=== PATIENT | female | born 1965 | race Hispanic/Latino ===

== ENCOUNTER 2017-05-19 17:55 | Emergency (ER) | payer MEDICAID, OTHER ==
[2017-05-19 18:26] VITALS: BMI 28.3
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
[2017-05-19 20:52] VITALS: BP 144/99; PULSE 80; RESP 19; TEMP 98.2
[2017-05-19] MEDS ORDERED: Lidocaine 1% Inj (20ml) ONE (20:54)
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
[2017-05-19 21:29] VITALS: O2SAT 99
--- NOTE | 2017-05-20 07:39 | RAD ---
PROCEDURE: Radiographs of the Right Forearm HISTORY: fall, forearm pain COMPARISON: None available. TECHNIQUE: Frontal and lateral views obtained. FINDINGS: BONES: No fracture or destructive lesion. JOINT SPACES: Unremarkable. OTHER FINDINGS: None. IMPRESSION: Unremarkable radiographs of the right forearm.
--- NOTE | 2017-05-20 07:42 | RAD ---
PROCEDURE: Radiographs of the Lumbar Spine. HISTORY: back pain s/p fall COMPARISON: No prior. FINDINGS: BONES: A levoscoliotic lumbar spinal deformity is not excluded. The appears to be positional however. The anterior posterior lumbar curvature is normal nevertheless. No fracture or spondylolisthesis. Vertebral heights are normal throughout. No destructive bony lesions appreciated. DISC SPACES: Multilevel spondylosis appreciated mostly at the upper lumbar spine although moderate disc height loss present L4-5 also indicating degenerative disease but at the lower lumbar spine. OTHER FINDINGS: None. 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 Multilevel degenerative disease without fracture or spondylolisthesis.
== END 2017-05-19 21:28 | disposition home or self-care (01) ==
LOC: ED 17:55
DX: S09.90XA Unspecified injury of head, initial encounter (principal); S51.811A Laceration without foreign body of right forearm, initial encounter; Y04.2XXA Assault by strike against or bumped into by another person, initial encounter; R51 Headache; M54.2 Cervicalgia; M54.9 Dorsalgia, unspecified; R91.1 Solitary pulmonary nodule